=== PATIENT | male | born 1965 | race American Indian/Alaskan Native ===

== ENCOUNTER 2016-06-11 22:33 | Emergency (ER) | payer MEDICARE ==
[2016-06-11 23:16] VITALS: BP 152/93
== END 2016-06-11 23:05 | disposition left against medical advice (07) ==
LOC: ED 22:33
DX: R51 Headache (principal); K64.9 Unspecified hemorrhoids; Z53.21 Procedure and treatment not carried out due to patient leaving prior to being seen by health care provider

== ENCOUNTER 2016-06-12 07:30 | Emergency (ER) | payer MEDICARE ==
[2016-06-12 07:56] VITALS: BP 143/105
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
== END 2016-06-12 08:18 | disposition home or self-care (01) ==
LOC: ED 07:30
DX: R51 Headache (principal); I10 Essential (primary) hypertension; M19.90 Unspecified osteoarthritis, unspecified site; Z88.6 Allergy status to analgesic agent
CPT/HCPCS: 99282